=== PATIENT | male | born 1955 | race Caucasian/White ===

== ENCOUNTER 2016-05-29 21:37 | Emergency (ER) | payer BC | END 2016-05-29 23:21 | disposition home or self-care (01) | LOC: D.ER 21:37 | DX: I95.1 Orthostatic hypotension (principal); S01.91XA Laceration without foreign body of unspecified part of head, initial encounter; W19.XXXA Unspecified fall, initial encounter; Y93.89 Activity, other specified; Y92.012 Bathroom of single-family (private) house as the place of occurrence of the external cause; M54.12 Radiculopathy, cervical region; I10 Essential (primary) hypertension ==

== ENCOUNTER → 2018-09-11 08:11 | Outpatient (CLI) | payer BC | END | disposition home or self-care (01) | LOC: D.HCCARDIO 09-04 11:00 | PROVIDERS: ATTEND Internal Medicine Cardiovascular Disease | DX: I25.119 Atherosclerotic heart disease of native coronary artery with unspecified angina pectoris (principal) ==

== ENCOUNTER 2018-09-18 08:55 | Outpatient (CLI) | payer BC ==
[~2018-09-18] VITALS: Ht 177.8 cm; Wt 100.0 kg
--- NOTE | ~2018-09-18 | HEMODYNAMI ---
PATIENT:JOSEPHINE GORDON MEDICAL RECORD: [id number] : 59 LOCATION:[facility] ADMISSION DATE: 09/18/18 Generatedon:09/18/201811:14 Patient name: JOSEPHINE GORDON Patient #: [id number] SSN: DO B: 1955 Date of study: 09/18/2018 Page: Of Hemodynamic Procedure Report Patient Data Patient Demographics Procedure consent was obtained First Name: JOSEPHINE Gender: Male Last Name: EVAN : 1955 [facility] Initial: ELIZA Age: 62 year(s) Patient #: [id number] Race: Unknown Additional ID: [id number] Contact details [address]: [address] [place] [address] State: [place] City: [place] Zip code: [address] Past Medical History Allergies Allergen Reaction Date Comments Reported Tetracycline 09/18/2018 Admission Admission Data Admission Date: 09/18/2018 Admission Time: 8:55 Weight (lbs.): 219 Weight (kg.): 99.34 Lab Results Lab Result Date: 09/18/2018 Lab Result Time: 9:20 Biochemistry Name Units Result Min Max BUN mg/dl 23 --(----)-* 7 18 Creatinine mg/dl 0.9 --(-*--)-- 0.6 1.3 CBC Name Units Result Min Max Hematocrit % 44.8 --(*---)-- 42 54 Hemoglobin g/dl 15.4 --(-*--)-- 13.5 17.5 Procedure Procedure Types Cath Procedure Diagnostic Procedure LHC LHC w/Coronaries w/Grafts Sedation Charges Moderate Sedation up to 15 minutes PCI Procedure AMI/SVG/HISTOLOGY SUPERVISOR PTCA or Stent SVG-BMS/TRAVIS Initial Procedure Description Procedure Date Procedure Date: 09/18/2018 Procedure Start Time: 10:52 Procedure End Time: 11:12 Procedure Staff Name Function Contreras Teresa MD Performing Physician Daniel Jaime RT Monitor Oneida Main RT Scrub Maia Mike RN Nurse Procedure Data Cath Procedure Fluoroscopy Diagnostic fluoroscopy Total fluoroscopy Time: 6.7 time: 6.7 min min Diagnostic fluoroscopy Total fluoroscopy dose: dose: 1244 mGy 1244 mGy Contrast Material Contrast Material Type Amount (ml) Isovue 300 181 Entry Location Entry Primary Successful Side Size Upsize Upsize Entry Closure Succes sful Closure Location (Fr) 1 (Fr) 2 (Fr) Remarks Device Remarks Femoral Right 5 Fr 6 Fr Exoseal artery Short Estimated blood loss: 10 ml Diagnostic catheters Device Type Used For End Catheter Placement MULTIPACK Pigtail 5 Fr Procedure catheter MULTIPACK JL 4.0 5Fr Procedure catheter MULTIPACK 3DRC 5Fr Procedure catheter DIAGNOSTIC AR2 MOD 5 Fr Procedure catheter ([id number]) Procedure Complications No complications Procedure Medications Medication Administration Route Dosage 0.9% NaCl I.V. 100 ml/hr Oxygen etCO2 Nasal cannula 2 l/min Lidocaine 2% added to field 20 Heparin Flush Bag added to field 2 bags (1000units/500ml NS) Versed I.V. 2 mg Fentanyl I.V. 50 mcg Versed I.V. 2 mg Fentanyl I.V. 50 mcg Versed I.V. 2 mg Fentanyl I.V. 50 mcg Heparin Bolus I.V. 4000 units Integrilin (Bolus I.V. 9 ml 2mg/ml) Plavix P.O. 600 mg Hemodynamics Rest HGB: 15.4 (g/dl) Heart Rate: 61 (bpm) Pressure Samples Time Site Value (mmHg) Purpose Heart Use Rate(bpm) 10:54 LV 88/19,36 Snapshot 65 10:54 AO 128/77(99) Pullback 73 10:54 LV 138/-1,11 Pullback 73 Gradients Valve Time Site 1 Site 2 Mean SEP/DFP Peak To Heart Use (mmHg) (sec/min) Peak Rate (mmHg) (bpm) Aortic 10:54 LV AO 24 23 10 73 138/-1,11 128/77(99) Calculations Valve P-P Mean Valve Index Valve Source Name Gradient Area Flow (cm2) Aortic 10 24 10 24 Snapshots Pre Cath Intra NCS Post Cath Vital Signs Time Heart Resp SPO2 etCO2 NIBP (mmHg) Rhythm Pain Sedation Rate (ipm) (%) (mmHg) Status Level (bpm) 10:42:13 68 17 100 33.7 162/99(143) NSR 0 (11) 10(A) , No pain 10:46:37 65 14 99 31.4 165/91(132) NSR 0 (11) 10(A) , No pain 10:50:53 60 18 98 17.9 139/76(125) NSR 0 (11) 10(A) , No pain 10:55:17 65 12 96 45.6 119/68(99) NSR 0 (11) 10(A) , No pain 10:59:35 69 16 97 33.7 114/67(97) NSR 0 (11) 10(A) , No pain 11:03:55 64 13 97 35.4 120/57(94) NSR 0 (11) 9(A) , No pain 11:08:03 76 19 95 38.9 117/87(102) NSR 0 (11) 9(A) , No pain 11:12:19 69 14 98 32.9 112/61(92) NSR 0 (11) 10(A) , No pain Medications Time Medication Route Dose Verified Delivered Reason Notes Effectiveness by by 10:44:57 0.9% NaCl I.V. 100 Contreras Maia used for ml/hr Malick Mike tandem mill sticker 10:45:18 Oxygen etCO2 2 Contreras Maia used for Nasal l/min Malick Mike procedure cannula RN 10:45:28 Lidocaine 2% added 20ml Contreras Contreras for local to vial Malick Teresa MD anesthetic field 10:45:32 Heparin Flush added 2 Contreras Contreras used for Bag to bags Malick Teresa MD procedure (1000units/500ml field NS) 10:51:13 Versed I.V. 2 mg Contreras Maia for sedation Malick Mike RN 10:51:23 Fentanyl I.V. 50 Contreras Maia for sedation mcg Malick Mike RN 10:55:02 Versed I.V. 2 mg Contreras Maia for sedation Malick Mike RN 10:55:06 Fentanyl I.V. 50 Contreras Maia for sedation mcg Malick Mike RN 10:59:15 Versed I.V. 2 mg Contreras Maia for sedation Malick Mike RN 10:59:23 Fentanyl I.V. 50 Contreras Maia for sedation mcg Malick Mike RN 11:04:59 Heparin Bolus I.V. 4000 Contreras Carvalho for verif ied units Malick Mike anticoagulation with Dr. DIOMEDES Teresa 11:05:12 Integrilin I.V. 9 ml Contreras Carvalho for waste d (Bolus 2mg/ml) Malick Mike antiplatelet 1mL RN therapy 11:07:30 Plavix P.O. 600 Contreras Carvalho for mg Malick Mike antiplatelet RN therapy Procedure Log Time Note 10:24:20 Signed procedure consent form obtained from patient. 10:24:21 Diagnostic Cath status Elective 10:24:23 Time tracking: Regular hours (M-F 7:00 - 5:00) 10:24:26 Plan of Care:Hemodynamics will remain stable., Cardiac rhythm will remain stable., Comfort level will be maintained., Respiratory function will remain adequate., Patient/ family verbilizes understanding of procedure., Procedure tolerated without complication., Recovers from procedure without complications.. 10:24:35 H&P Date Dictated: 08/29/2018 Within 30 days and on chart., H&P Addendum completed by physician on day of procedure. (MUST COMPLETE FOR ALL OUTPATIENTS). 10:24:41 Patient allergic to Tetracycline 10:25:00 Patient Weight : 219 lbs 10:27:54 Daniel Jaime RT(R) sent for patient. Start room use. 10:37:05 Patient received from Pre/Post Procedure Room to CCL 1 Alert and oriented. Tansferred to table in Supine position. 10:37:06 Warm blankets applied, and radha hugger turned on for patient comfort. 10:37:06 Correct patient and procedure confirmed by team. 10:37:07 ECG and BP/O2 sat monitors applied to patient. 10:40:49 Vital chart was started 10:44:57 0.9% NaCl 100 ml/hr I.V. was administered by Maia Mike RN; used for procedure; 10:45:18 Oxygen 2 l/min etCO2 Nasal cannula was administered by Maia Mike RN; used for procedure; 10:45:28 Lidocaine 2% 20ml vial added to field was administered by Contreras Teresa MD; for local anesthetic; 10:45:32 Heparin Flush Bag (1000units/500ml NS) 2 bags added to field was administered by Contreras Teresa MD; used for procedure; 10:47:22 Baseline sample Acquired. 10:47:27 Rhythm: sinus rhythm 10:47:29 Full Disclosure recording started 10:47:29 Pre-procedure instructions explained to patient. 10:47:30 Pre-op teaching completed and patient verbalized understanding. 10:47:32 Family in waiting room. 10:47:33 Patient NPO since Midnight. 10:47:35 Is the patient allergic to Iodine/contrast media? No. 10:47:36 Is patient on blood thinner?No 10:47:37 Patient diabetic? Yes. 10:47:37 If diabetic: On Metformin? Yes 10:47:54 If on Metformin: Last Dose? 09/15/2018 10:47:59 Previous problem with sedation/anesthesia? No ? 10:48:00 Snore? Yes 10:48:01 Sleep apnea? No 10:48:02 Deviated septum? No 10:48:03 Opens mouth fully? Yes 10:48:04 Sticks out tongue? Yes 10:48:05 Airway obstruction? No ? 10:48:07 Dentures? No ? 10:48:10 Pre procedure: right dorsailis pedis pulse 1+ Palpable, but thready & weak; easily obliterated 10:48:13 Patient pain scale 0/10 ?. 10:48:18 IV patent on arrival in left hand with 0.9% NaCl at O. 10:50:12 Lab Result : BUN 23 mg/dl 10:50:12 Lab Result : Hemoglobin 15.4 g/dl 10:50:12 Lab Result : Creatinine 0.9 mg/dl 10:50:12 Lab Result : Hematocrit 44.8 % 10:50:16 Lab results completed and on chart. 10:50:19 Right groin area was prepped with chlora-prep and draped in sterile fashion 10:50:20 Alarms reviewed by R. N. 10:50:20 Sharps counted by scrub and verified by R.N. 10:50:25 Use device set Femoral Dx 10:50:26 ACIST Syringe (17263) opened to sterile field. 10:50:27 Bag Decanter (2002S) opened to sterile field. 10:50:27 Medline Cath Pack ([id number]) opened to sterile field. 10:50:28 ACIST Hand Control (46820) opened to sterile field. 10:50:29 ACIST Manifold (34150) opened to sterile field. 10:50:29 Tegaderm 4 x 4 (1626W) opened to sterile field. 10:50:30 SHEATH 5FR [place] (POG857) opened to sterile field. 10:50:31 DIAGNOSTIC Multipack 5Fr catheter set ([id number]) opened to sterile field. 10:50:32 DIAGNOSTIC WIRE .035 260cm J wire (088797) opened to sterile field. 10:50:39 Physician arrived 10:50:39 --------ALL STOP TIME OUT------ 10:50:40 Final Timeout: patient, procedure, and site verified with staff and physician. All members of the team are in agreement. 10:50:41 Right groin site verified by team. 10:50:43 Maximum allowable Isovue 300 dose 300ml. Physician notified. (300ml for normal creatinines. For patients with creatinine of 1.7 or higher multiply weight(kg) x 5 divided by creatinine.) 10:50:47 Fire Safety Assessment: A--An alcohol-based skin anteseptic being used preoperatively., C--Open oxygen or nitrous oxide is being used., D--An ESU, laser, or fiber-optic light is being used. 10:50:49 Physical assessment completed. ASA score P 2 - A patient with mild systemic disease as per Contreras Teresa MD. 10:50:52 Sedation plan: IV Moderate Sedation Medication:Versed, Fentanyl 10:51:13 Versed 2 mg I.V. was administered by Maia Mike RN; for sedation; 10:51:23 Fentanyl 50 mcg I.V. was administered by Maia Mike RN; for sedation; 10:52:33 Zero performed for pressure channel P1 10:52:41 Zero performed for pressure channel P1 10:52:46 Procedure started. 10:52:52 Local anesthetic to right femoral artery with Lidocaine 2% by Contreras Teresa MD.INITIAL ACCESS ONLY 10:52:59 A 5 Fr sheath was inserted into the Right Femoral artery 10:54:21 A MULTIPACK Pigtail 5 Fr catheter was advanced over the wire and used for Procedure. 10:54:34 LV gram done using CHAU 10:54:36 Injector settings: Ml/sec: 10, Volume: 20, 10:54:38 LV hemodynamics recorded. 10:54:42 EF : 65 % 10:54:43 Catheter exchanged over wire. 10:54:48 A MULTIPACK JL 4.0 5Fr catheter was advanced over the wire and used for Procedure. 10:55:02 Versed 2 mg I.V. was administered by Maia Mike RN; for sedation; 10:55:06 Fentanyl 50 mcg I.V. was administered by Maia Mike RN; for sedation; 10:55:29 LCA angiography performed. 10:56:03 Catheter exchanged over wire. 10:56:12 A MULTIPACK 3DRC 5Fr catheter was advanced over the wire and used for Procedure. 10:57:03 MEYER to LAD angiography performed. 10:57:21 RCA angiography performed. 10:57:48 Catheter exchanged over wire. 10:57:54 A DIAGNOSTIC AR2 MOD 5 Fr catheter ([id number]) was advanced over the wire and used for Procedure. 10:58:29 SVG to Diag/ OM angiography performed. 10:59:12 SVG to RCA angiography performed. 10:59:15 Versed 2 mg I.V. was administered by Maia Mike RN; for sedation; 10:59:23 Fentanyl 50 mcg I.V. was administered by Maia Mike RN; for sedation; 11:00:49 Catheter removed. 11:01:15 INFLATOR Merit BasixCompak (VB0582) opened to sterile field. 11:01:23 SHEATH 6FR [place] (WTI367) opened to sterile field. 11:02:04 GUIDE 6FR MB 1 catheter (LA6MB1) opened to sterile field. 11:02:15 Sheath upsized to a 6 Fr Short. 11:02:26 6 Fr MB1 guide catheter was inserted over the wire 11:02:35 CHOICE PT Extra Support 182cm wire ([id number]) opened to sterile field. 11:04:32 CHOICE PT ES wire advanced. 11:04:41 Wire advanced across lesion. 11:04:59 Heparin Bolus 4000 units I.V. was administered by Maia Mike RN; for anticoagulation; verified with Dr. Teresa 11:05:12 Integrilin (Bolus 2mg/ml) 9 ml I.V. was administered by Maia Mike RN; for antiplatelet therapy; wasted 1mL 11:07:30 Plavix 600 mg P.O. was administered by Maia Mike RN; for antiplatelet therapy; 11:07:42 Place stent Inflation Number: 1 A COBRA RX 2.5 X 8 Stent was prepped and advanced across the Aorta Right -> R PDA. The stent was deployed at 9 JUAN M for 0:10 (min:sec). 11:08:20 Stent catheter was removed intact over wire. 11:08:21 Wire removed. 11:08:22 Guide catheter removed. 11:08:27 EXOSEAL 6Fr (EX600) opened to sterile field. 11:08:34 Sheath removed intact; hemostasis achieved with Exoseal to the Right Femoral artery. 11:08:35 Procedure ended.(Physican Out) 11:11:08 Fluoroscopy time 06.70 minutes. 11:11:12 Flurop Dose total: 1244 11:11:12 Fluoroscopy dose: 1244 mGy 11:11:22 Contrast amount:Isovue 300 181ml. 11:11:23 Sharps counted by scrub and verified by R.N. 11:11:24 Insertion/operative site no bleeding no hematoma. 11:11:27 Post-op/insertion site Right Femoral artery dressed using a 4 x 4 and Tegaderm. 11:11:32 Post right femoral artery:stable, soft, clean and dry 11:11:33 Post Procedure Pulses reassessed and unchanged 11:11:35 Post-procedure physical assessment completed. ASA score P 2 - A patient with mild systemic disease as per Contrreas Teresa MD. 11:11:37 Post procedure rhythm: unchanged. 11:11:40 Estimated blood loss: 10 ml 11:11:41 Post procedure instruction explained to patient.Patient verbalizes understanding. 11:11:42 Patient needs reinforcement of post procedure teaching. 11:11:57 Procedure type changed to Cath procedure, Diagnostic procedure, LHC, LHC w/Coronaries w/Grafts, Sedation Charges, Moderate Sedation up to 15 minutes, PCI procedure, AMI/SVG/HISTOLOGY SUPERVISOR PTCA or Stent, SVG-BMS/TRAVIS Initial 11:12:36 Procedure and supply charges have been captured, reviewed, submitted and are correct. 11:12:39 Procedure Complication : No complications 11:12:41 Vital chart was stopped 11:12:42 See physician's report for complete and final results. 11:12:44 Report given to Pre/Post Procedure Room. 11:12:46 Patient transfered to Pre/Post Procedure Room with Stretcher. 11:12:48 Procedure ended. 11:12:48 Full Disclosure recording stopped 11:12:52 End room use (Document Last) Intervention Summary Intervention Notes Time ActionType Lesion and Equipment Action# Pressure Duration Attributes Used 11:07:42 Place stent Aorta Right COBRA RX 1 9 00:10 -> R PDA 2.5 X 8 Stent Device Usage Item Name Manufacture Quantity Catalog Number Hospital Part Current Minimal Lot# / Charge Number Stock Stock Serial# Code ACIST Syringe Acist 1 32255 117869 969442 [id number] 20 (40796) Medical Systems Inc Bag Decanter Microtek 1 2001S 205418 07768 110621 5 (2001S) Medical Inc. Medline Cath Medline 1 [id number] 389366 62191 627821 5 Pack ([id number]) ACIST Hand Acist 1 75614 762262 373242 315855 5 Control Medical (92623) Systems Inc ACIST Manifold Acist 1 37662 170347 403490 468162 5 (63529) Medical Systems Inc Tegaderm 4 x 4 3M 1 1626W 233035 695019 722920 5 (1626W) SHEATH 5FR Terumo 1 CJD420 644803 531391 694299 5 [place] (PDW927) DIAGNOSTIC Cardinal 1 TY5344 532695 58491 333055 30 Multipack 5Fr Health catheter set (BS7350) DIAGNOSTIC St Bhupendra 1 173514 236969 404201 203989 30 WIRE .035 260cm J wire (265322) MULTIPACK Cardinal 1 452248 5 Pigtail 5 Fr Health catheter MULTIPACK JL Cardinal 1 485747 5 4.0 5Fr Health catheter MULTIPACK 3DRC Cardinal 1 935761 5 5Fr catheter Health DIAGNOSTIC AR2 Cardinal 1 [id number] 092279 492112 229505 20 MOD 5 Fr Health catheter ([id number]) INFLATOR Merit Merit 1 WJ3883 911840 721740 930860 15 PerSaydeMovitas Mobile Medical (EJ0803) SHEATH 6FR Terumo 1 VFL362 287292 908724 564133 40 [place] (JBI260) GUIDE 6FR MB 1 Medtronic 1 LA6MB1 836064 18101 299920 1 catheter (LA6MB1) CHOICE PT [place] 1 [id number] 230507 138941 611252 5 Extra Support Scientific 182cm wire ([id number]) COBRA RX 2.5 X Celonova 1 817213 [id number] 5953797 7 8 [id number] 8 stent Biosciences () EXOSEAL 6Fr Cardinal 1 EX600 522978 135629 004957 10 (EX600) Health Signature Audit Scar[place] Stage Time Signature Unsigned Intra-Procedure 09/18/2018 Daniel Jaime 11:14:55 AM RT(R) Signatures Monitor : Daniel Jaime RT Signature : Date : Time : [id number] [place] [address]
[2018-09-18] MEDS ORDERED: AMOXICILLIN875 MG PO (09:09)
[2018-09-18] MEDS ORDERED: GLUCOPHAGE500 MG PO (09:10)
[2018-09-18] MEDS ORDERED: BYSTOLIC5 MG PO (09:11)
[2018-09-18] MEDS ORDERED: LISINOPRIL5 MG PO (09:11)
[2018-09-18] MEDS ORDERED: VITAMIN D5000 UNIT PO (09:12)
[2018-09-18] MEDS ORDERED: PROSCAR5 MG PO (09:13)
[2018-09-18] MEDS ORDERED: OXYBUTYNIN CHLOR5 MG PO (09:13)
[2018-09-18] MEDS ORDERED: FLOMAX0.4 MG PO (09:13)
[2018-09-18] MEDS ORDERED: CIALIS2.5 MG PO (09:14)
[2018-09-18] MEDS ORDERED: LIPITOR40 MG PO (09:14)
[2018-09-18] MEDS ORDERED: HYDROCODON-ACE1 EAC2 PO (09:15)
[2018-09-18 09:29] VITALS: BP 129/79; Ht 177.8 cm; Wt 100.0 kg
[2018-09-18 09:54] LABS: CALC OSMOLALITY 281 mosm/kg (275-300); CARBON DIOXIDE 26.7 mmol/L (21.0-32.0); CHLORIDE - SERUM 105 mmol/L (98-107); CREATININE - SERUM 0.9 mg/dL (0.6-1.3); GLUCOSE 198 mg/dL (74-106); POTASSIUM - SERUM 4.2 mmol/L (3.5-5.1); SODIUM 136 mmol/L (136-145); UREA NITROGEN 23 mg/dL (7-18); eGFR NON AFRICAN AMERICAN > 90 mL/min (90-120)
[2018-09-18 09:57] LABS: BASOPHILS 0.4 % (0-2); HEMATOCRIT 44.8 % (42.0-54.0); HEMOGLOBIN 15.4 g/dL (13.5-17.5); IMMATURE GRANULOCYTES 0.4 % (0-5); LYMPHOCYTES 28.2 % (15-50); MCH 30.3 pg (26.0-34.0); MCHC 34.4 g/dL (31.0-37.0); MCV 88.2 fL (80.0-100.0); PLATELET COUNT 199 10x3/uL (130-400); RBC 5.08 10x6/uL (4.20-6.10); RDW 12.5 % (11.5-14.5)
[2018-09-18] MEDS ORDERED: PLAVIX75 MG PO (11:27)
[2018-09-18] MEDS ORDERED: BAYER CHEWABLE81 MG PO (11:35)
--- NOTE | 2018-09-21 12:49 | OP ---
PATIENT NAME: JOSEPHINE GORDON MEDICAL RECORD: [id number] :59 LOCATION:D.[facility] ADMISSION DATE: SURGEON: CHRISSY SCHWARTZ MD DATE OF OPERATION: 09/18/2018 PROCEDURES: 1. PTCA stent RCA through patent vein graft. 2. Left heart catheterization. 3. Selective coronary angiography. 4. Vein graft angiography. 5. MEYER angiography. INDICATION: Angina and coronary artery disease. PROCEDURE IN DETAIL: After informed consent was obtained and after a detailed description of risks, benefits as well as alternative therapies, the patient elected to proceed with angiogram and angioplasty. The right femoral area was prepped and draped in normal sterile fashion. Right femoral artery was cannulated via modified Seldinger technique with placement of 6-Romansh sheath. All catheters exchanged through this sheath. FINDINGS: Left ventriculogram was performed in standard 30-degree CHAU view, reveals preserved cardiac wall motion, ejection fraction is 60%. SELECTIVE CORONARY ANGIOGRAPHY: 1. Left main is with no significant angiographic disease. 2. Left anterior descending is closed. 3. MEYER to the LAD is widely patent. Distal LAD is diffusely diseased, small, but widely patent. 4. Left circumflex is closed in the mid vessel. 5. Vein graft in a skipped fashion to the ramus intermedius and OM1 is widely patent. Distal vessels are small, diffusely diseased, but widely patent. 6. Right coronary artery is closed in the mid vessel. 7. Vein graft to the RCA is patent; however, the distal right coronary artery has 90% to 95% percent stenosis after the vein graft. PTCA STENT OF THE DISTAL RCA: The stent used was a 2.0 x 8 mm Cobra. Result was 0% residual stenosis. OVERALL IMPRESSION: Successful PTCA stent of the RCA through the patent vein graft going from 90% to 95% initial stenosis to 0% residual. TRANSINT:[id number] Voice Confirmation ID: [id number] DOCUMENT ID: [id number] CHRISSY SCHWARTZ MD at 1249 CC: [id number] DICTATION DATE: 09/18/18 1113 FOOD TESTER: 09/18/18 1147 DEP CLI 09/18/18 [place] [address]
[2018-09-21] MEDS ORDERED: ISOSORBIDE MONO30 M1 PO (16:11)
== END 2018-09-18 15:30 | disposition home or self-care (01) ==
LOC: D.CATH 08:55
PROVIDERS: ATTEND Internal Medicine Interventional Cardiology
DX: I25.110 Atherosclerotic heart disease of native coronary artery with unstable angina pectoris (principal); R94.30 Abnormal result of cardiovascular function study, unspecified

== ENCOUNTER 2019-03-18 07:47 | Observation (INO) | payer BC ==
[~2019-03-18] VITALS: Ht 177.8 cm; Wt 105.0 kg
--- NOTE | ~2019-03-18 | HEMODYNAMI ---
PATIENT:JOSEPHINE GORDON MEDICAL RECORD: [id number] : 59 LOCATION:[facility] D.2126 ADMISSION DATE: 03/18/19 Generatedon:03/19/20199:59 Patient name: JOSEPHINE GORDON Patient #: [id number] SSN: [id number] : 1955 Date of study: 03/19/2019 Page: Of Hemodynamic Procedure Report Patient Data Patient Demographics Procedure consent was obtained First Name: JOSEPHINE Gender: Male Last Name: EVAN : 1955 Middle Initial: ELIZA Age: 63 year(s) Patient #: [id number] Race: SSN: [id number] Additional ID: [id number] Contact details Address: [address] [place] [address] [address] State: [place] City: [place] Zip code: [address] Past Medical History Allergies Allergen Reaction Date Comments Reported Tetracycline 09/18/2018 Other allergy 03/19/2019 Tetracycline Admission Admission Data Admission Date: 03/18/2019 Admission Time: 9:36 Arrival Date: 03/19/2019 Arrival Time: 0:00 Admit Source: Other Insurance Payor: Private Room #: [id number] health insurance [facility] #: [id number] Height (in.): 70 BSA: 2.22 (m2) Height (cm.): 177.8 BMI: 33.21 (kg/m2) Weight (lbs.): 231.49 Weight (kg.): 105 Lab Results Lab Result Date: 03/19/2019 Lab Result Time: 0:00 Biochemistry Name Units Result Min Max BUN mg/dl 20 --(----)*- 7 18 Creatinine mg/dl 1.2 --(---*)-- 0.6 1.3 eGFR ml/min 64.08571 *-(----)-- 90 120 NONAFRICAN CBC Name Units Result Min Max Hematocrit % 38.4 *-(----)-- 42 54 Hemoglobin g/dl 12.6 -*(----)-- 13.5 17.5 Procedure Procedure Types Cath Procedure Diagnostic Procedure LHC LHC w/Coronaries w/Grafts Sedation Charges Moderate Sedation up to 15 minutes Procedure Description Procedure Date Procedure Date: 03/19/2019 Procedure Start Time: 9:44 Procedure End Time: 9:57 Procedure Staff Name Function Contreras Teresa MD Performing Physician Oneida Main RT Monitor Gayle Juarez RT Monitor Nelson Rodriguez RT Scrub Bob Juarez RN Nurse Procedure Data Cath Procedure Fluoroscopy Diagnostic fluoroscopy Total fluoroscopy Time: 2.1 time: 2.1 min min Diagnostic fluoroscopy Total fluoroscopy dose: 458 dose: 458 mGy mGy Contrast Material Contrast Material Type Amount (ml) Isovue 300 88 Entry Location Entry Primary Successful Side Size Upsize Upsize Entry Closure Succes sful Closure Location (Fr) 1 (Fr) 2 (Fr) Remarks Device Remarks Femoral Right 5 Fr Exoseal artery Estimated blood loss: 5 ml Diagnostic catheters Device Type Used For End Catheter Placement MULTIPACK Pigtail 5 Fr Procedure catheter MULTIPACK JL 4.0 5Fr Procedure catheter MULTIPACK 3DRC 5Fr Procedure catheter DIAGNOSTIC AR2 MOD 5 Fr Procedure catheter ([id number]) Procedure Complications No complications Procedure Medications Medication Administration Route Dosage Oxygen etCO2 Nasal cannula 2 l/min Lidocaine 2% added to field 20 Heparin Flush Bag added to field 2 bags (1000units/500ml NS) 0.9% NaCl I.V. 100 ml/hr Versed I.V. 2 mg Fentanyl I.V. 100 mcg Versed I.V. 2 mg Fentanyl I.V. 50 mcg Mechanical Ventricular Support IABP: Other mechanical ventricular support: Hemodynamics Rest BSA: 2.22 (m2) HGB: 12.6 (g/dl) O2 Consumption: Estimated: 259.2 (ml/min) O2 Con sumption indexed: Estimated:116.76 (ml/min/m) Heart Rate: 68 (bpm) Snapshots Pre Cath Intra NCS Post Cath Vital Signs Time Heart Resp SPO2 etCO2 NIBP (mmHg) Rhythm Pain Sedation Rate (ipm) (%) (mmHg) Status Level (bpm) 9:27:24 69 17 98 0 185/90(146) NSR 0 (11) 10(A) , No pain 9:31:59 67 13 99 0 162/85(133) NSR 0 (11) 10(A) , No pain 9:36:35 64 14 98 28.4 159/81(136) NSR 0 (11) 10(A) , No pain 9:41:01 66 15 93 0 138/80(113) NSR 0 (11) 9(A) , No pain 9:45:30 64 14 96 0 132/76(103) NSR 0 (11) 9(A) , No pain 9:49:54 65 17 98 0 135/75(111) NSR 0 (11) 9(A) , No pain 9:55:24 65 14 97 32.9 157/88(121) NSR 0 (11) 10(A) , No pain Medications Time Medication Route Dose Verified Delivered Reason Notes Effe ctiveness by by 9:27:39 Oxygen etCO2 2 Contreras Bob used for Nasal l/min Malick Juarez RN procedure cannula 9:27:45 Lidocaine 2% added 20ml Contreras Chairez for local to vial Malick Teresa MD anesthetic field 9:27:51 Heparin Flush added 2 Contreras Contreras used for Bag to bags Malick Teresa MD procedure (1000units/500ml field NS) 9:28:00 0.9% NaCl I.V. 100 Contreras Rojas Per ml/hr Malick Juarez RN physician 9:37:18 Versed I.V. 2 mg Contreras Rojas for Malick Juarez RN sedation 9:37:24 Fentanyl I.V. 100 Contreras Rojas for mcg Malick Juarez RN sedation 9:45:43 Versed I.V. 2 mg Contreras Rojas for Malick Juarez RN sedation 9:45:47 Fentanyl I.V. 50 Contreras Rojas for mcg Malick Juarez RN sedation Procedure Log Time Note 9:12:27 Informed consent obtained and on chart 9:13:38 Procedure Status Urgent Heart Cath (IP). 9:13:44 Bob Juarez RN sent for patient. Start room use. 9:13:47 Time tracking: Regular hours (M-F 7:00 - 5:00) 9:13:52 Plan of Care:Hemodynamics will remain stable., Cardiac rhythm will remain stable., Comfort level will be maintained., Respiratory function will remain adequate., Patient/ family verbilizes understanding of procedure., Procedure tolerated without complication., Recovers from procedure without complications.. 9:14:06 H&P Date Dictated: 03/19/2019 New H&P dictated by physician.. 9:14:56 Patient allergic to Other allergyTetracycline 9:18:48 Patient received from Med II to CCL 1 Alert and oriented. Tansferred to table in Supine position. 9:18:49 Warm blankets applied, and radha hugger turned on for patient comfort. 9:18:50 Correct patient and procedure confirmed by team. 9:18:53 ECG and BP/O2 sat monitors applied to patient. 9:19:10 Pre-procedure instructions explained to patient. 9:19:11 Pre-op teaching completed and patient verbalized understanding. 9:19:14 Family in waiting room. 9:19:17 Patient NPO since Midnight. 9:21:18 Arrival Date: 03/19/2019 12:00:00 AM 9:21:26 Insurance Payor : Private health insurance 9:22:09 Admit Source: Other 9:22:34 Is the patient allergic to Iodine/contrast media? No. 9:22:37 Was the patient premedicated? N/A 9:22:38 Is patient on blood thinner?Yes 9:22:46 ACC The patient was administered the following blood thiners within the last 24 hours: ACCPlavix 9:22:49 Patient diabetic? Yes. 9:22:57 If diabetic: On Metformin? No 9:23:04 Previous problem with sedation/anesthesia? No ? 9:23:07 Snore? No 9:24:42 Sleep apnea? No 9:24:44 Deviated septum? No 9:24:46 Opens mouth fully? No 9:24:47 Sticks out tongue? Yes 9:24:50 Airway obstruction? No ? 9:24:52 Dentures? No ? 9:25:01 Pre procedure: right dorsailis pedis pulse 2+ Normal; easily identifiable; not easily obliterated 9:25:08 Patient pain scale 0/10 ?. 9:25:25 IV patent on arrival in left forearm with 0.9% NaCl at KVO. 9:25:53 Vital chart was started 9:25:56 Baseline sample Acquired. 9:26:00 Rhythm: sinus rhythm 9:26:02 Full Disclosure recording started 9:26:52 Lab Result : Creatinine 1.2 mg/dl 9::52 Lab Result : BUN 20 mg/dl 9::52 Lab Result : eGFR NONAFRICAN 64.38254 ml/min 9::52 Lab Result : Hematocrit 38.4 % 9::52 Lab Result : Hemoglobin 12.6 g/dl 9:27:10 Lab results completed and on chart. 9:27:16 Stress Test: no; N/A ? 9:27:39 Oxygen 2 l/min etCO2 Nasal cannula was administered by Bob Juarez RN; used for procedure; Verbal order read back and verified. 9:27:45 Lidocaine 2% 20ml vial added to field was administered by Contreras Teresa MD; for local anesthetic; Verbal order read back and verified. 9:27:51 Heparin Flush Bag (1000units/500ml NS) 2 bags added to field was administered by Contreras Teresa MD; used for procedure; Verbal order read back and verified. 9:28:00 0.9% NaCl 100 ml/hr I.V. was administered by Bob Juarez RN; Per physician; Verbal order read back and verified. 9:29:14 Risk of Mortality: .1 9:29:16 Risk of blood transfusion: .1 9:29:18 Risk of RENUKA: .2 9:29:25 Right groin area was prepped with chlora-prep and draped in sterile fashion 9:29:28 Alarms reviewed by R. N. 9:29:29 Sharps counted by scrub and verified by R.N. 9:29:45 Use device set Femoral Dx 9:29:48 ACIST Syringe (43776) opened to sterile field. 9:29:49 Bag Decanter (2002) opened to sterile field. 9:29:50 Medline Cath Pack ([id number]) opened to sterile field. 9:29:52 ACIST Hand Control (29442) opened to sterile field. 9:29:53 ACIST Manifold (84099) opened to sterile field. 9:29:55 Tegaderm 4 x 4 (1626W) opened to sterile field. 9:30:04 SHEATH 5FR [place] (GWC850) opened to sterile field. 9:30:05 EMERALD Guide Wire (786-958) opened to sterile field. 9:30:53 Patient Height : 70 inches 9:31:02 Patient Weight : 231.49 lbs 9:31:23 Procedure type changed to Cath procedure, Diagnostic procedure, LHC, LHC w/Coronaries w/Grafts, Sedation Charges, Moderate Sedation up to 15 minutes 9:31:28 Diagnostic Cath Status : Elective 9:31:32 IABP : 9:31:33 Other mechanical ventricular support: 9:34:27 Zero performed for pressure channel P1 9:35:05 Physician paged 9:36:40 Physician arrived 9:36:42 --------ALL STOP TIME OUT------ 9:36:45 Final Timeout: patient, procedure, and site verified with staff and physician. All members of the team are in agreement. 9:36:47 Right groin site verified by team. 9:36:52 Fire Safety Assessment: A--An alcohol-based skin anteseptic being used preoperatively., C--Open oxygen or nitrous oxide is being used., D--An ESU, laser, or fiber-optic light is being used. 9:36:57 Physical assessment completed. ASA score P 2 - A patient with mild systemic disease as per Contreras Teresa MD. 9:37:01 2) 60-89 Mildly reduced kidney function, and other findings (as for stage 1) point to kidney disease. 9:37:06 Maximum allowable contrast dose (3.7 X eGFR X 0.75)183 ml. 9:37:11 Sedation plan: IV Moderate Sedation Medication:Versed, Fentanyl 9:37:18 Versed 2 mg I.V. was administered by Bob Juarez RN; for sedation; Verbal order read back and verified. 9:37:24 Fentanyl 100 mcg I.V. was administered by Bob Juarez RN; for sedation; Verbal order read back and verified. 9:44:44 Procedure started. 9:44:47 Local anesthetic to right femoral artery with Lidocaine 2% by Contreras Teresa MD.INITIAL ACCESS ONLY 9:45:43 Versed 2 mg I.V. was administered by Bob Juarez RN; for sedation; Verbal order read back and verified. 9:45:47 Fentanyl 50 mcg I.V. was administered by Bob Juarez RN; for sedation; Verbal order read back and verified. 9:46:23 A 5 Fr sheath was inserted into the Right Femoral artery 9:46:35 A MULTIPACK Pigtail 5 Fr catheter was advanced over the wire and used for Procedure. 9:46:40 LV gram done using CHAU 9:46:45 Injector settings: Ml/sec: 10, Volume: 20, 9:46:51 EF : 65 % 9:46:57 Catheter removed. 9:47:05 A MULTIPACK JL 4.0 5Fr catheter was advanced over the wire and used for Procedure. 9:47:10 LCA angiography performed. 9:47:44 Catheter removed. 9:47:49 A MULTIPACK 3DRC 5Fr catheter was advanced over the wire and used for Procedure. 9:48:08 MEYER angiography performed. 9:48:51 RCA angiography performed. 9:49:07 ACCDominant side:Co-Dominant 9:49:10 Catheter removed. 9:49:15 DIAGNOSTIC Multipack 5Fr catheter set ([id number]) opened to sterile field. 9:49:22 A DIAGNOSTIC AR2 MOD 5 Fr catheter ([id number]) was advanced over the wire and used for Procedure. 9:50:10 SVG to Ramus angiography performed. 9:51:28 SVG to RCA angiography performed. 9:51:31 Catheter removed. 9:51:34 EXOSEAL 5Fr (EX500) opened to sterile field. 9:52:03 Sheath removed intact; hemostasis achieved with Exoseal to the Right Femoral artery. 9:52:14 Procedure ended.(Physican Out) 9:52:23 Fluoroscopy time 02.10 minutes. 9:52:29 Fluoroscopy dose: 458 mGy 9:52:29 Flurop Dose total: 458 9:52:34 Dose Area Product 40680 mGy/cm. 9:52:38 Contrast amount:Isovue 300 88ml. 9:52:42 Maximum allowable dose exceeded? No. 9:52:43 Sharps counted by scrub and verified by R.N. 9:52:59 Post-op/insertion site Right Femoral artery dressed using a 4 x 4 and Tegaderm. 9:53:08 Post Procedure Pulses reassessed and unchanged 9:53:15 Post procedure: right dorsailis pedis pulse 2+ Normal; easily identifiable; not easily obliterated. 9:53:23 Post-procedure physical assessment completed. ASA score P 2 - A patient with mild systemic disease as per Contreras Teresa MD. 9:53:27 Post procedure rhythm: unchanged. 9:53:31 Estimated blood loss: 5 ml 9:53:32 Post procedure instruction explained to patient.Patient verbalizes understanding. 9:53:33 Patient needs reinforcement of post procedure teaching. 9:55:50 Procedure and supply charges have been captured, reviewed, submitted and are correct. 9:55:58 Procedure Complication : No complications 9:56:01 Vital chart was stopped 9:56:04 [facility] Findings: mild to moderate CAD (<70%) 9:56:12 Operative report dictated upon procedure completion. 9:56:13 See physician's report for complete and final results. 9:56:16 Report given to [facility]. 9:56:20 Patient transfered to [facility] with Bed. 9:57:58 Procedure ended. 9:57:58 Full Disclosure recording stopped 9:58:02 End room use (Document Last) 9:58:23 End room use (Document Last) 9:59:06 End room use (Document Last) Device Usage Item Name Manufacture Quantity Catalog Hospital Part Current Minimal L ot# / Number Charge Number Stock Stock Serial# Code ACIST Acist 1 84038 [id number] 296616 052459 20 Syringe Medical (16211) Systems Inc Bag Microtek 1 2001S 948122 63482 271465 5 Decanter Medical Inc. () Medline Medline 1 [id number] 848164 41777 995802 5 Cath Pack ([id number]) ACIST Hand Acist 1 70888 906128 478007 996838 5 Control Medical (39290) Systems Inc ACIST Acist 1 20817 361653 439689 834213 5 Manifold Medical (07330) Systems Inc Tegaderm 4 3M 1 1626W 305658 582575 907570 5 x 4 (1626W) SHEATH 5FR Terum[place] 1 SBA017 836234 393715 662143 5 [place] (CVG288) EMERALD Cardinal 1 502-455 971923 816863 649908 5 Guide Wire Health (502-455) MULTIPACK Cardinal 1 538492 5 Pigtail 5 Health Fr catheter MULTIPACK Cardinal 1 151219 5 JL 4.0 5Fr Health catheter MULTIPACK Cardinal 1 202438 5 3DRC 5Fr Health catheter DIAGNOSTIC Cardinal 1 KF9139 412779 61847 715479 30 Multipack Health 5Fr catheter set (SQ3005) DIAGNOSTIC Cardinal 1 030752H 147954 716166 837450 20 AR2 MOD 5 Health Fr catheter (241069E) EXOSEAL 5Fr Cardinal 1 EX500 923300 729630 871403 10 (EX500) Health Signature Audit [place] Stage Time Signature Unsigned Intra-Procedure 03/19/2019 Gayle Juarez 9:58:23 AM RT(R) Intra-Procedure 03/19/2019 Bob Juarez RN 9:59:06 AM Intra-Procedure 03/19/2019 Contreras Teresa 9:59:24 AM [place] [address] [place] [address]
[~2019-03-18 07:47] MED LIST: AMOXICILLIN875 MG PO; BAYER CHEWABLE81 MG PO; BYSTOLIC5 MG PO; CIALIS2.5 MG PO; FLOMAX0.4 MG PO; GLUCOPHAGE500 MG PO; HYDROCODON-ACE1 EAC2 PO; ISOSORBIDE MONO30 M1 PO; LIPITOR40 MG PO; LISINOPRIL5 MG PO; OXYBUTYNIN CHLOR5 MG PO; PLAVIX75 MG PO; PROSCAR5 MG PO; VITAMIN D5000 UNIT PO
[2019-03-18] MEDS ORDERED: LEVEMIR IN100 UNITS/ SC (07:53)
[2019-03-18] MEDS ORDERED: XIFAXAN550 MG PO (07:55)
[2019-03-18] MEDS ORDERED: SEROQUEL200 MG PO ×2 (08:04→08:25)
[2019-03-18 08:10] VITALS: BP 138/85
[2019-03-18 08:39] LABS: BASOPHILS 0.3 % (0-2); EOSINOPHILS 1.7 % (0-7); HEMATOCRIT 42.6 % (42.0-54.0); HEMOGLOBIN 14.5 g/dL (13.5-17.5); IMMATURE GRANULOCYTES 0.3 % (0-5); LYMPHOCYTES 40.4 % (15-50); MCH 31.3 pg (26.0-34.0); MEAN PLATELET VOLUME 9.9 fL (7.4-10.4); NEUTROPHILS 48.3 % (40-80); PLATELET COUNT 137 10x3/uL (130-400); RBC 4.63 10x6/uL (4.20-6.10); RDW 12.4 % (11.5-14.5); WBC 7.2 10x3/uL (4.8-10.8)
--- NOTE | 2019-03-18 08:40 | NUR ---
PTS BLOOD PRESSURE IS BETTER, STATES HIS PAIN IS BETTER AFTER NITRO 5/10
[2019-03-18 08:41] VITALS: BP 148/77
[2019-03-18 08:47] LABS: APTT 29.7 SECONDS (22.8-39.4); CALC OSMOLALITY 286 mosm/kg (275-300); CALCIUM 9.1 mg/dL (8.5-10.1); CARBON DIOXIDE 29.5 mmol/L (21.0-32.0); CHLORIDE - SERUM 105 mmol/L (98-107); INR 0.97 (0.85-1.17); POTASSIUM - SERUM 4.2 mmol/L (3.5-5.1); PROTIME 12.4 SECONDS (11.6-15.0); SODIUM 139 mmol/L (136-145); UREA NITROGEN 24 mg/dL (7-18); eGFR NON AFRICAN AMERICAN 81 mL/min (90-120)
[2019-03-18 08:49] LABS: GLUCOSE 187 mg/dL (74-106)
[2019-03-18 09:02] LABS: ALBUMIN 3.3 g/dL (3.4-5.0); ALKALINE PHOSPHATASE 62 U/L (46-116); ALT (SGPT) 25 U/L (10-68); BILIRUBIN - TOTAL 0.54 mg/dL (0.2-1.3); CKMB 0.6 U/L (0.0-3.6); CREATINE KINASE 57 UL (21-232); MAGNESIUM - SERUM 1.5 mg/dL (1.8-2.4); PROTEIN - SERUM 6.5 g/dL (6.4-8.2); TROPONIN-I 0.021 ng/mL (0.000-0.060)
[2019-03-18 11:16] VITALS: Ht 177.8 cm; Wt 105.0 kg
--- NOTE | 2019-03-18 11:22 | NUR ---
ASSESSMENT COMPLETE PT AAOX4 RESP UNLABORED SKIN W/D COLOR WNL C/O CHEST PAIN /10 NAD NOTED WILL CONTINUE TO MONITORS
--- NOTE | 2019-03-18 14:44 | NUR ---
DENIES ANY NEEDS. STATES PAIN RELIEVED AFTER MORPHINE GIVEN. SR UP WITH CALL LIGHT IN REACH
[2019-03-18 15:24] LABS: CKMB 1.2 U/L (0.0-3.6); CREATINE KINASE 49 UL (21-232); TROPONIN-I 0.017 ng/mL (0.000-0.060)
[2019-03-18 18:11] VITALS: BP 149/82
--- NOTE | 2019-03-18 19:15 | NUR ---
RECEIVED REPORT, WILL ASSUME CARE OF PT, DENIES ANY NEEDS AT THIS TIME, EXPLAINED WILL BE NPO AFTER MIDNIGHT, BED IS LOW, SRX2, CALL LIGHT IN REACH, WILL CONTINUE PLAN OF CARE
[2019-03-18 20:00] VITALS: BP 133/83
[2019-03-18 21:45] LABS: CKMB 0.9 U/L (0.0-3.6); CREATINE KINASE 43 UL (21-232); TROPONIN-I 0.023 ng/mL (0.000-0.060)
[2019-03-19] VITALS: BP 115/66
[2019-03-19 01:51] LABS: APPEARANCE CLEAR (CLEAR); BILIRUBIN NEGATIVE (NEGATIVE); COLOR YELLOW (YELLOW); GLUCOSE 100 mg/dL (NEGATIVE); KETONE NEGATIVE (NEGATIVE); NITRITE NEGATIVE (NEGATIVE); PROTEIN NEGATIVE (NEGATIVE); SPECIFIC GRAVITY 1.015 (1.005-1.020); UROBILINOGEN NORMAL (NORMAL)
--- NOTE | 2019-03-19 03:57 | NUR ---
I have reviewed this patient and I concur with the Shift Assessment completed by the Licensed Practical Nurse today this shift.
[2019-03-19 04:00] VITALS: BP 120/60
[2019-03-19 05:28] LABS: BASOPHILS 0.4 % (0-2); EOSINOPHILS 2.9 % (0-7); HEMATOCRIT 38.4 % (42.0-54.0); HEMOGLOBIN 12.6 g/dL (13.5-17.5); IMMATURE GRANULOCYTES 0.3 % (0-5); LYMPHOCYTES 36.1 % (15-50); MCH 30.5 pg (26.0-34.0); MCHC 32.8 g/dL (31.0-37.0); MEAN PLATELET VOLUME 10.5 fL (7.4-10.4); MONOCYTES 9.6 % (2-11); NEUTROPHILS 50.7 % (40-80); PLATELET COUNT 143 10x3/uL (130-400); RBC 4.13 10x6/uL (4.20-6.10); RDW 12.4 % (11.5-14.5)
[2019-03-19 05:50] LABS: ALBUMIN 2.9 g/dL (3.4-5.0); ANION GAP 7.2 mmol/L (8-16); BILIRUBIN - TOTAL 0.39 mg/dL (0.2-1.3); CALCIUM 7.8 mg/dL (8.5-10.1); CARBON DIOXIDE 29.1 mmol/L (21.0-32.0); CREATININE - SERUM 1.2 mg/dL (0.6-1.3); POTASSIUM - SERUM 4.3 mmol/L (3.5-5.1); PROTEIN - SERUM 5.7 g/dL (6.4-8.2)
--- NOTE | 2019-03-19 07:10 | NUR ---
REPORT RECEIVED FROM ANODE BUILDER AND PATIENT CARE ASSUMED PATIENT LAYING IN BED ON BACK WITH EYES CLOSED AND BREATHING EVENLY. VSS. WILL CONTINUE WITH PLAN OF CARE. SR UP X 2 BED IN LOW POSITION AND CALL LIGHT IN REACH
--- NOTE | 2019-03-19 09:29 | CN ---
PATIENT NAME:JOSEPHINE GORDON MEDICAL RECORD: [id number] : 59 LOCATION:D. D.2126 ADMIT DATE: 03/18/19 ACCOUNT: [id number] CONSULTING PHYSICIAN: CHRISSY SCHWARTZ MD REFERRING PHYSICIAN: CATHY SEGUNDO MD DATE OF CONSULTATION: 03/18/2019 CARDIOLOGY CONSULTATION DIAGNOSES: 1. Unstable angina. 2. Coronary artery disease. 3. Previous bypass surgery. 4. Previous cardiac stent. 5. Hypertension. 6. Hyperlipidemia. 7. Diabetes. HISTORY OF PRESENT ILLNESS: This is a gentleman known to us with past stent, is in August. He has been having 1 week of increasing episodes of chest pain, chest discomfort compatible with angina, just like that of his previous angina, dull aching, heavy sensation across the anterior chest. He is now having episodes at rest. His EKG has T-wave inversions inferiorly. PHYSICAL EXAMINATION: CONSTITUTIONAL/GENERAL APPEARANCE: Well nourished, well developed, appears stated age. EYES: Lids and conjunctivae noninjected. No discharge. No pallor. ENT: Lips within normal limit. No cyanosis. No pallor. NECK: Carotid arteries, bilateral normal upstroke. No bruits. No thrills. No jugular venous pressure or distention. CERVICAL LYMPH NODES: Nontender. Nonenlarged. THYROID: Not enlarged. No nodules. CARDIOVASCULAR: Precordial exam, nondisplaced. No heaves or pericardial thrills. Rate and rhythm, regular. Heart sounds, normal S1, normal S2. No S3, no gallop, no rub. Systolic murmur, not heard. Diastolic murmur, not heard. RESPIRATORY: Respiratory effort, unlabored. Normal curvature. No thoracic deformity. No chest wall tenderness. Percussion, resonant. Auscultation, clear. No wheezes, no rales, no rhonchi. ABDOMEN: Soft, nondistended, nontender. No abdominal pain, no vomiting and normal appetite. MUSCULOSKELETAL: No joint tenderness, normal gait, normal tone. SKIN: Warm and dry. OVERALL IMPRESSION: Unstable angina in an escalating fashion, now with class IV rest pain. We will proceed with coronary angiography in the a.m. Further care depends upon the findings of the angiography. TRANSINT:[id number] Voice Confirmation ID: [id number] DOCUMENT ID: [id number] CONSULT REPORT [id number] JOSEPHINE GORDON, CHRISSY BIGGS at 0929 CC: [id number] DICTATION DATE: 03/18/19 1004 AUTOMOBILE BUMPER STRAIGHTENER: 03/18/19 1023 ADM IN [place] [id number] [place] [id number]
--- NOTE | 2019-03-20 08:44 | MORECARE ---
CASE MANAGEMENT DISCHARGE SUMMARY PATIENT: JOSEPHINE GORDON ELIZA UNIT: [id number] ADM DATE: 03/18/19 AGE: 63 : 59 SEX: M ROOM/BED: D.2126 AUTHOR: CLARENCE THOMASON PHYSICIAN: REFERRING PHYSICIAN: CATHY SEGUNDO MD DATE OF SERVICE: 03/20/19 Discharge Plan Patient Name: [facility]PH[facility] 1955 Planned Disposition: Home Anticipated Discharge Date: 03/19/19 Discharge Date: 03/19/2019 Expected LOS: 1 Initial Reviewer: [email or web address] Initial Review Date: 03/20/2019 Generated: 03/20/19 9:43 am Patient Name: JOSEPHINE GORDON Page [phone] at 0844 All edits/amendments must be made on the electronic document DICTATION DATE: 03/20/19842 CADET DECK: HAWK 03/20/1941 RPT#: [id number] DC DATE:03/19/19 STATUS: DIS IN [facility] [address] [place] [address] END OF REPORT
--- NOTE | 2019-03-26 17:02 | OP ---
PATIENT NAME: JOSEPHINE GORDON MEDICAL RECORD: [id number] :59 LOCATION:D.M2 D.2126 ADMISSION DATE:03/18/19 SURGEON: CHRISSY SCHWARTZ MD DATE OF OPERATION: 03/19/2019 PROCEDURES: 1. Left heart catheterization. 2. Selective coronary angiography. 3. Left ventriculogram. 4. Vein graft angiography. 5. MEYER angiography. INDICATION: Angina and coronary artery disease. PROCEDURE IN DETAIL: After informed consent was obtained and after a detailed description of risks, benefits as well as alternative therapies, the patient elected to proceed with angiogram and angioplasty. The right femoral area was prepped and draped in normal sterile fashion. Right femoral artery was cannulated via modified Seldinger technique with placement of 5-Mauritanian sheath. All catheters exchanged through this sheath. FINDINGS: Left ventriculogram was performed in standard 30-degree CHAU view, reveals good cardiac wall motion, ejection fraction 65%. SELECTIVE CORONARY ANGIOGRAPHY: 1. Left main is with no significant angiographic disease. 2. Left anterior descending is totally occluded. 3. Left circumflex has 95% stenosis, ramus intermedius is totally occluded. 4. Right coronary artery is totally occluded. 5. MEYER to the LAD is widely patent. Distal LAD is small and diffusely diseased widely patent. 6. Vein graft to the circumflex is widely patent. Distal circumflex is small and diffusely diseased widely patent. 7. Vein graft to the right coronary artery is patent. Distal right coronary artery is small and diffusely diseased, but widely patent. OVERALL IMPRESSION: Wide patency of all grafts, moderate to severe diffuse disease of distal vessels. This is responsible for the chronic anginal picture. This will be treated medically with nitrates. TRANSINT:[id number] Voice Confirmation ID: [id number] DOCUMENT ID: [id number] CHRISSY SCHWARTZ MD at 1702 CC: [id number] DICTATION DATE: 03/19/19 0958 BLAST FURNACE KEEPER: 03/19/19 1007 DIS IN 03/19/19 [facility] [address] [place] [address]
== END 2019-03-19 13:23 | disposition home or self-care (01) ==
LOC: D.ER 07:47 → D.M2 09:36 → OBSVTIME 10:00 → D.M2 03-19 13:23
PROVIDERS: Family Medicine; ADMIT Internal Medicine Nephrology; ATTEND Internal Medicine Nephrology
DX: I25.110 Atherosclerotic heart disease of native coronary artery with unstable angina pectoris (principal); R07.9 Chest pain, unspecified; E11.9 Type 2 diabetes mellitus without complications; I10 Essential (primary) hypertension; N17.9 Acute kidney failure, unspecified; E83.42 Hypomagnesemia; E78.5 Hyperlipidemia, unspecified; K58.9 Irritable bowel syndrome, unspecified; N40.0 Benign prostatic hyperplasia without lower urinary tract symptoms; F17.213 Nicotine dependence, cigarettes, with withdrawal

== ENCOUNTER 2019-03-23 02:36 | Observation (INO) | payer BC ==
[~2019-03-23] VITALS: Ht 177.8 cm; Wt 108.2 kg
[2019-03-23] VITALS (8 sets, daily range): BP systolic 144–180; BP diastolic 68–85; Ht 177.8 cm; Wt 108.2 kg
[~2019-03-23 02:36] MED LIST changes: +LEVEMIR IN100 UNITS/ SC; +SEROQUEL200 MG PO; +XIFAXAN550 MG PO
[2019-03-23 03:24] LABS: BASOPHILS 0.4 % (0-2); EOSINOPHILS 2.8 % (0-7); HEMATOCRIT 46.5 % (42.0-54.0); HEMOGLOBIN 15.4 g/dL (13.5-17.5); IMMATURE GRANULOCYTES 0.4 % (0-5); LYMPHOCYTES 34.1 % (15-50); MCH 30.7 pg (26.0-34.0); MCHC 33.1 g/dL (31.0-37.0); MCV 92.8 fL (80.0-100.0); MEAN PLATELET VOLUME 10.1 fL (7.4-10.4); MONOCYTES 9.5 % (2-11); NEUTROPHILS 52.8 % (40-80); PLATELET COUNT 165 10x3/uL (130-400); RBC 5.01 10x6/uL (4.20-6.10); RDW 12.4 % (11.5-14.5); WBC 9.8 10x3/uL (4.8-10.8)
[2019-03-23 03:33] LABS: APTT 29.3 SECONDS (22.8-39.4); INR 0.91 (0.85-1.17); PROTIME 11.8 SECONDS (11.6-15.0)
[2019-03-23 03:34] LABS: CALC OSMOLALITY 288 mosm/kg (275-300); CALCIUM 8.9 mg/dL (8.5-10.1); CARBON DIOXIDE 32.9 mmol/L (21.0-32.0); CHLORIDE - SERUM 103 mmol/L (98-107); CREATININE - SERUM 1.2 mg/dL (0.6-1.3); GLUCOSE 258 mg/dL (74-106); POTASSIUM - SERUM 4.1 mmol/L (3.5-5.1); SODIUM 138 mmol/L (136-145); UREA NITROGEN 25 mg/dL (7-18); eGFR NON AFRICAN AMERICAN 65 mL/min (90-120)
[2019-03-23 03:50] LABS: ALBUMIN 3.6 g/dL (3.4-5.0); ALKALINE PHOSPHATASE 68 U/L (46-116); ALT (SGPT) 41 U/L (10-68); BILIRUBIN - TOTAL 0.37 mg/dL (0.2-1.3); CKMB 1.1 U/L (0.0-3.6); CREATINE KINASE 56 UL (21-232); MAGNESIUM - SERUM 1.7 mg/dL (1.8-2.4); PROTEIN - SERUM 7.3 g/dL (6.4-8.2); TROPONIN-I < 0.017 ng/mL (0.000-0.060)
--- NOTE | 2019-03-23 04:39 | NUR ---
REPORT RECEIVED FROM DIOMEDES LINDQUIST, PT CARE ASSUMED. WROTE NAME ON BOARD. AWAITING PT'S ARRIVAL TO ROOM.
--- NOTE | 2019-03-23 05:07 | NUR ---
PT TO ROOM VIA WHEELCHAIR, ACCOMPANIED BY DIOMEDES GONZALEZ.
[2019-03-23 05:26] LABS: CKMB 0.8 U/L (0.0-3.6); CREATINE KINASE 46 UL (21-232)
[2019-03-23 05:27] LABS: TROPONIN-I < 0.017 ng/mL (0.000-0.060)
[2019-03-23] MEDS ORDERED: VALIUM5 MG PO (05:35)
--- NOTE | 2019-03-23 07:42 | NUR ---
ALERT AND ORIENTED. TELEMERTY SHOWS SR 75. SL TO RIGHT FA. UP AB ROZINA. WILL MONITOR. DR ORDAZ HERE. SR UP WITH CALL LIGHT IN REACH
[2019-03-23 11:08] LABS: CKMB 1.1 U/L (0.0-3.6); CREATINE KINASE 41 UL (21-232); TROPONIN-I 0.028 ng/mL (0.000-0.060)
[2019-03-23 16:40] LABS: CKMB 1.4 U/L (0.0-3.6); CREATINE KINASE 43 UL (21-232); TROPONIN-I 0.027 ng/mL (0.000-0.060)
--- NOTE | 2019-03-23 17:50 | NUR ---
LYING QUIETLY, EYES CLOSED. NO DISTRESS NOTED. SR UP WITH CALL LIGHT IN REACH
[2019-03-24 04:30] VITALS: BP 115/66
[2019-03-24 05:35] LABS: BASOPHILS 0.3 % (0-2); EOSINOPHILS 3.6 % (0-7); HEMATOCRIT 41.8 % (42.0-54.0); IMMATURE GRANULOCYTES 0.2 % (0-5); LYMPHOCYTES 32.7 % (15-50); MCH 30.8 pg (26.0-34.0); MCHC 33.5 g/dL (31.0-37.0); MCV 91.9 fL (80.0-100.0); MEAN PLATELET VOLUME 10.3 fL (7.4-10.4); MONOCYTES 10.4 % (2-11); NEUTROPHILS 52.8 % (40-80); PLATELET COUNT 169 10x3/uL (130-400); RBC 4.55 10x6/uL (4.20-6.10); RDW 12.3 % (11.5-14.5); WBC 8.9 10x3/uL (4.8-10.8)
[2019-03-24 05:50] LABS: ALBUMIN 3.1 g/dL (3.4-5.0); ALKALINE PHOSPHATASE 64 U/L (46-116); ALT (SGPT) 36 U/L (10-68); BILIRUBIN - TOTAL 0.29 mg/dL (0.2-1.3); CALC OSMOLALITY 279 mosm/kg (275-300); CALCIUM 8.6 mg/dL (8.5-10.1); CARBON DIOXIDE 29.5 mmol/L (21.0-32.0); CHLORIDE - SERUM 100 mmol/L (98-107); CREATININE - SERUM 0.9 mg/dL (0.6-1.3); GLUCOSE 227 mg/dL (74-106); POTASSIUM - SERUM 4.1 mmol/L (3.5-5.1); PROTEIN - SERUM 6.3 g/dL (6.4-8.2); SODIUM 135 mmol/L (136-145); UREA NITROGEN 20 mg/dL (7-18); eGFR NON AFRICAN AMERICAN > 90 mL/min (90-120)
[2019-03-24 07:53] VITALS: BP 144/78
[2019-03-24 11:27] VITALS: BP 165/80
--- NOTE | 2019-03-24 11:30 | NUR ---
PT CAME OUT OF ROOM WITH PERSONAL BELONGINGS STATED I'M LEAVING THE DOCTOR JESENIA IN AND SAID I COULD GO EXPLAINED HE WOULD HAVE TO WAIT ON PAPERWORK AND I WILL HOW TO DCD SALINE LOCK AND HAS TO WAIT SINCE HE HAS HAD IV MORPHINE PT STATES UNDERSTANDING
--- NOTE | 2019-03-24 12:30 | NUR ---
PT REFUSED FSBS AND NTG PATCH STATES I AM GOING HOME AND I DONT WANT THEM PT READY TO LEAVE NOW EXPLAINED IT WOULD BE 1300 BEFORE DISCHARGE DUE TO TAKING MORPHINE THIS MORNING
--- NOTE | 2019-03-24 13:16 | NUR ---
REVIEWED DISCHARGE INSTRUCTIONS WITH PT STATES UNDERSTANDING COPY GIVEN DCD SALINE LOCK TO RFA WITH IV CATHETER INTACT SITE FREE OF REDNESS OR EDEMA PT DISCHARGED IN STABLE CONDITION WITH ALL PERSONAL BELONGINGS WALKLING REFUSED TO GO BY W/C
== END 2019-03-24 13:16 | disposition home or self-care (01) ==
LOC: D.ER 02:36 → OBSVTIME 04:10 → D.M2 04:10
PROVIDERS: Family Medicine; ADMIT Family Medicine Adult Medicine; ATTEND Family Medicine Adult Medicine
DX: I25.110 Atherosclerotic heart disease of native coronary artery with unstable angina pectoris (principal); I10 Essential (primary) hypertension; E11.65 Type 2 diabetes mellitus with hyperglycemia; K21.9 Gastro-esophageal reflux disease without esophagitis; K58.9 Irritable bowel syndrome, unspecified; F17.213 Nicotine dependence, cigarettes, with withdrawal; F41.9 Anxiety disorder, unspecified